=== PATIENT | male | born 1960 | race African-American/Black ===

== ENCOUNTER 2016-10-12 09:12 | Inpatient (IN) | payer OTHER ==
[2016-10-12 09:56] VITALS: BMI 30.4
--- NOTE | 2016-10-12 12:06 | HP ---
CIWA Score - CIWA Score Nausea/Vomitin-No Nausea/No Vomiting Muscle Tremors: 3 Anxiety: 4-Mod. Anxious/Guarded Agitation: 4-Moderately Restless Paroxysmal Sweats: 1-Minimal Palms Moist Orientation: 2-Disoriented Date<2 days Tacttile Disturbances: 1-Very Mild Itch/Numbness Auditory Disturbances: 0-None Visual Disturbances: 0-None Headache: 0-None Present CIWA-Ar Total Score: 15 Admission ROS BHS - HPI Chief Complaint: Withdrawal sx. Allergies/Adverse Reactions: Allergies Allergy/AdvReac Type Severity Reaction Status Date / Time No Known Drug Allergies Allergy Unknown Verified 10/12/16 10:18 History of Present Illness: 56 y/o man with a long hx. of alcoholism is admitted for detox.Pt. has been in previous detox,denies significant sobriety. Exam Limitations: No Limitations - Ebola screening Have you traveled outside of the country in the last 21 days: No Have you had contact with anyone from an Ebola affected area: No Have you been sick,other than usual withdrawal symptoms: No Do you have a fever: No - Review of Systems Constitutional: Diaphoresis EENT: reports: No Symptoms Reported Respiratory: reports: Shortness of Breath (from smoking) Cardiac: reports: No Symptoms Reported GI: reports: Nausea, Abdominal cramping : reports: No Symptoms Reported Musculoskeletal: reports: No Symptoms Reported Integumentary: reports: Sweating Neuro: reports: Tingling, Tremors Endocrine: reports: No Symptoms Reported Hematology: reports: No Symptoms Reported Psychiatric: reports: No Sypmtoms Reported Other Systems: Reviewed and Negative Patient History - Patient Medical History Hx Anemia: No Hx Asthma: No Hx Chronic Obstructive Pulmonary Disease (COPD): No Hx Cancer: No Hx Cardiac Disorders: No Hx Congestive Heart Failure: No Hx Hypertension: No Hx Hypercholesterolemia: No Hx Pacemaker: No HX Cerebrovascular Accident: No Hx Seizures: No Hx Dementia: No Hx Diabetes: No Hx Gastrointestinal Disorders: No Hx Liver Disease: No Hx Genitourinary Disorders: No Hx Sexually Transmitted Disorders: No Hx Renal Disease (ESRD): No Hx Thyroid Disease: No Hx Human Immunodeficiency Virus (HIV): No Hx Hepatitis C: No Hx Depression: No Hx Suicide Attempt: No Hx Bipolar Disorder: No Hx Schizophrenia: No - Patient Surgical History Past Surgical History: No Hx Neurologic Surgery: No Hx Cataract Extraction: No Hx Cardiac Surgery: No Hx Lung Surgery: No Hx Breast Surgery: No Hx Breast Biopsy: No Hx Abdominal Surgery: No Hx Appendectomy: No Hx Cholecystectomy: No Hx Genitourinary Surgery: No Hx Section: No Hx Orthopedic Surgery: No Anesthesia Reaction: No - PPD History Previous Implant?: Yes Documented Results: Positive w/o proof Results: cxray (-) 04/28 PPD to be Administered?: No - Smoking Cessation Smoking history: Current every day smoker Aproximately how many cigarettes per day: 20 Hx Chewing Tobacco Use: No Initiated information on smoking cessation: Yes 'Breaking Loose' booklet given: 10/12/16 - Substance & Tx. History Hx Alcohol Use: Yes Hx Substance Use: Yes Substance Use Type: Alcohol, Cocaine Hx Substance Use Treatment: Yes (detox) - Substances Abused Cocaine Route: Inhalation Frequency: Daily Amount used: $50 Age of first use: 32 Date of Last Use: 10/11/16 Alcohol-beer Route: Oral Frequency: Daily Amount used: 3-6 pks. Age of first use: 23 Date of Last Use: 10/12/16 Family Disease History - Family Disease History Family History: Denies Admission Physical Exam [facility] - Vital Signs Vital Signs: Vital Signs - 24 hr 10/12/16 09:54 Temperature 97.3 F L Pulse Rate 79 Respiratory 18 Rate Blood Pressure 129/79 - Physical General Appearance: Yes: Tremorous, Sweating, Anxious HEENTM: Yes: Rhinorrhea Respiratory: Yes: Chest Non-Tender, Lungs Clear, Normal Breath Sounds Neck: Yes: Supple Breast: Yes: Breast Exam Deferred Cardiology: Yes: Regular Rhythm, Regular Rate, S1, S2 Abdominal: Yes: Normal Bowel Sounds, Non Tender, Soft Genitourinary: Yes: Within Normal Limits Back: Yes: Within Normal Limits Musculoskeletal: Yes: Within Normal Limits Extremities: Yes: Tremors Neurological: Yes: Fully Oriented, Alert Integumentary: Yes: Diaphoresis Lymphatic: Yes: Within Normal Limits - Diagnostic (1) Alcohol dependence with uncomplicated withdrawal Current Visit: Yes Status: Acute (2) Cocaine dependence, uncomplicated Current Visit: Yes Status: Acute Cleared for Admission [facility] - Detox or Rehab [facility] Level of Care: Medically Managed Detox Regimen/Protocol: Librium [facility] Breath Alcohol Content Breath Alcohol Content: 0 Urine Drug Screen - Results Drug Screen Negative: No Urine Drug Screen Results: INOCENCIO-Cocaine
[2016-10-12] MEDS ORDERED: chlordiazePOXIDE HCL 25 MG CAPSULE PO PRN (12:21)
[2016-10-12] MEDS ORDERED: MAGNESIUM CITRATE 300 ML BOTTLE PO PRN (12:21)
[2016-10-12] MEDS ORDERED: LOPERAMIDE HCL 2 MG CAPSULE PO PRN (12:21)
[2016-10-12] MEDS ORDERED: guaiFENesin/D-METHORPHAN HB 10 ML UNIT-DOSE CUPS PO PRN (12:21)
[2016-10-12] MEDS ORDERED: IBUPROFEN 400 MG TABLET (FP) PO PRN (12:21)
[2016-10-12] MEDS ORDERED: P-EPHED 60MG/TRIPROLIDI 2.5MG TABLET PO PRN (12:21)
[2016-10-12] MEDS ORDERED: MAG HYDROX/AL HYDROX/SIMETH 30 ML UNIT-DOSE CUP PO PRN (12:21)
[2016-10-12] MEDS ORDERED: MAGNESIUM HYDROX 2400MG/30ML ORAL SUSPENSION 30 ML CUP PO PRN (12:21)
[2016-10-12] MEDS ORDERED: MENTHOL/PHENOL 1 EACH UD MM PRN (12:21)
[2016-10-12] MEDS ORDERED: ACETAMINOPHEN 325 MG TABLET (FP) PO PRN (12:21)
[2016-10-12] MEDS ORDERED: NICOTINE POLACRILEX 4 MG GUM BUC PRN (12:21)
[2016-10-12] MEDS ORDERED: chlordiazePOXIDE HCL 25 MG CAPSULE PO ONE (12:35)
[2016-10-12] MEDS: NICOTINE 21 MG/24 HOURS TOPICAL PATCH TD SCH (13:01)
--- NOTE | 2016-10-12 14:17 | EKG ---
Test Reason : Blood Pressure : / mmHG Vent. Rate : 094 BPM Atrial Rate : 094 BPM P-R Int : 122 ms QRS Dur : 082 ms QT Int : 380 ms P-R-T Axes : 053 034 083 degrees QTc Int : 475 ms NORMAL SINUS RHYTHM NONSPECIFIC T WAVE ABNORMALITY ABNORMAL ECG NO PREVIOUS ECGS AVAILABLE Confirmed by MERY HUTCHINS, MYLES ([id number]) on 10/12/2016 2:16:38 PM Referred By: Fabrice Carranza Confirmed By:MYLES ORDONEZ MD
[2016-10-12 16:41] LABS: URINE APPEARANCE CLEAR; URINE BILIRUBIN NEGATIVE (NEGATIVE); URINE BLOOD NEGATIVE (NEGATIVE); URINE COLOR LTYELLOW; URINE GLUCOSE (UA) NEGATIVE (NEGATIVE); URINE KETONE NEGATIVE (NEGATIVE); URINE LEUK ESTERASE NEGATIVE (NEGATIVE); URINE NITRITE NEGATIVE (NEGATIVE); URINE PROTEIN NEGATIVE (NEGATIVE); URINE UROBILINOGEN NEGATIVE E.U./dl (0.2-1.0)
[2016-10-12] MEDS: chlordiazePOXIDE HCL 25 MG CAPSULE PO SCH ×2 (17:22→22:08)
[2016-10-12] MEDS: THIAMINE HCL 100 MG TABLET (FP) PO SCH (22:08)
[2016-10-13] MEDS: chlordiazePOXIDE HCL 25 MG CAPSULE PO SCH ×4 (05:40→22:33)
[2016-10-13 10:05] LABS: MCH 29.2 pg (25.7-33.7); MEAN CELL VOLUME 88.4 fl (80-96); MEAN PLT VOLUME 9.9 fl (7.5-11.1); PLATELET COUNT 231 K/MM3 (134-434); RDW 14.8 % (11.9-15.9); WHITE BLOOD COUNT 3.5 K/mm3 (4.0-10.0)
[2016-10-13] MEDS: NICOTINE 21 MG/24 HOURS TOPICAL PATCH TD SCH (10:27)
[2016-10-13] MEDS: PRENATAL VITAMINS W/ FOLIC ACID TABLET (FP) PO SCH (10:27)
[2016-10-13 10:42] LABS: ALBUMIN 4.1 g/dl (3.4-5.0); BILIRUBIN,TOTAL 0.3 mg/dL (0.2-1.0); CALCIUM 9.3 mg/dL (8.5-10.1); CREATININE 1.7 mg/dL (0.7-1.3); TOT PROT 7.2 g/dl (6.4-8.2)
--- NOTE | 2016-10-13 11:18 | PN ---
[facility] CIWA - CIWA Score Nausea/Vomitin-No Nausea/No Vomiting Muscle Tremors: 4-Moderate,w/Arms Extend Anxiety: 4-Mod. Anxious/Guarded Agitation: 4-Moderately Restless Paroxysmal Sweats: 1-Minimal Palms Moist Orientation: 0-Oriented Tacttile Disturbances: 3-Moderate Itch/Numb/Burn Auditory Disturbances: 0-None Visual Disturbances: 0-None Headache: 0-None Present CIWA-Ar Total Score: 16 S Progress Note (SOAP) Subjective: ANXIETY,TREMORS,SWEATS,FATIGUE,INTERMITTENT SLEEP. Objective: 10/13/16 11:18 Vital Signs Temperature 97.7 F 10/13/16 09:42 Pulse Rate 68 10/13/16 09:42 Respiratory Rate 18 10/13/16 09:42 Blood Pressure 121/84 10/13/16 09:42 O2 Sat by Pulse Oximetry (%) Laboratory Last Values WBC 3.5 K/mm3 (4.0-10.0) L 10/13/16 06:00 RBC 4.43 M/mm3 (4.00-5.60) 10/13/16 06:00 Hgb 12.9 GM/dL (11.7-16.9) 10/13/16 06:00 Hct 39.2 % (35.4-49) 10/13/16 06:00 MCV 88.4 fl (80-96) 10/13/16 06:00 MCHC 33.0 g/dl (32.0-35.9) 10/13/16 06:00 RDW 14.8 % (11.9-15.9) 10/13/16 06:00 Plt Count 231 K/MM3 (134-434) 10/13/16 06:00 MPV 9.9 fl (7.5-11.1) 10/13/16 06:00 Sodium 142 mmol/L (136-145) 10/13/16 06:00 Potassium 4.6 mmol/L (3.5-5.1) 10/13/16 06:00 Chloride 105 mmol/L (98-107) 10/13/16 06:00 Carbon Dioxide 30 mmol/L (21-32) 10/13/16 06:00 Anion Gap 7 (8-16) L 10/13/16 06:00 BUN 25 mg/dL (7-18) H D 10/13/16 06:00 Creatinine 1.7 mg/dL (0.7-1.3) H 10/13/16 06:00 Creat Clearance w eGFR 42.21 (>60) 10/13/16 06:00 Random Glucose 141 mg/dL (74-106) H 10/13/16 06:00 Calcium 9.3 mg/dL (8.5-10.1) 10/13/16 06:00 Total Bilirubin 0.3 mg/dL (0.2-1.0) D 10/13/16 06:00 AST 34 U/L (15-37) 10/13/16 06:00 ALT 19 U/L (12-78) 10/13/16 06:00 Alkaline Phosphatase 60 U/L (45-117) 10/13/16 06:00 Total Protein 7.2 g/dl (6.4-8.2) 10/13/16 06:00 Albumin 4.1 g/dl (3.4-5.0) 10/13/16 06:00 Urine Color Ltyellow 10/12/16 13:20 Urine Appearance Clear 10/12/16 13:20 Urine pH 5.0 (5.0-8.0) 10/12/16 13:20 Ur Specific [place] 1.024 (1.001-1.035) 10/12/16 13:20 Urine Protein Negative (NEGATIVE) 10/12/16 13:20 Urine Glucose (UA) Negative (NEGATIVE) 10/12/16 13:20 Urine Ketones Negative (NEGATIVE) 10/12/16 13:20 Urine Blood Negative (NEGATIVE) 10/12/16 13:20 Urine Nitrite Negative (NEGATIVE) 10/12/16 13:20 Urine Bilirubin Negative (NEGATIVE) 10/12/16 13:20 Urine Urobilinogen Negative E.U./dl (0.2-1.0) 10/12/16 13:20 Ur Leukocyte Esterase Negative (NEGATIVE) 10/12/16 13:20 Hepatitis C Antibody <0.1 s/co ratio (0.0-0.9) 10/12/16 11:00 Assessment: 10/13/16 11:18 WITHDRAWAL SX Plan: CONTINUE DETOX
[2016-10-13] MEDS: THIAMINE HCL 100 MG TABLET (FP) PO SCH (22:33)
[2016-10-13] MEDS: diphenhydrAMINE HCL 50 MG CAPSULE PO PRN (22:33)
[2016-10-14] MEDS: chlordiazePOXIDE HCL 25 MG CAPSULE PO SCH ×2 (05:37→10:51)
[2016-10-14] MEDS: PRENATAL VITAMINS W/ FOLIC ACID TABLET (FP) PO SCH (10:51)
[2016-10-14] MEDS: NICOTINE 21 MG/24 HOURS TOPICAL PATCH TD SCH (10:51)
--- NOTE | 2016-10-14 11:01 | PN ---
S CIWA - CIWA Score Nausea/Vomitin-No Nausea/No Vomiting Muscle Tremors: 4-Moderate,w/Arms Extend Anxiety: 3 Agitation: 3 Paroxysmal Sweats: 3 Orientation: 0-Oriented Tacttile Disturbances: 0-None Auditory Disturbances: 0-None Visual Disturbances: 0-None Headache: 0-None Present CIWA-Ar Total Score: 13 BHS Progress Note (SOAP) Subjective: Anxiety,tremors,sweating,interrupted sleep,restless Objective: 10/14/16 11:00 Vital Signs - 8 hr 10/14/16 10/14/16 10/14/16 03:30 06:48 10:53 Temperature 95.9 F L 97.0 F L Pulse Rate 80 83 Respiratory 18 18 18 Rate Blood Pressure 127/72 110/65 Laboratory Tests 10/12/16 10/12/16 10/13/16 11:00 13:20 06:00 WBC 3.5 L RBC 4.43 Hgb 12.9 Hct 39.2 MCV 88.4 MCHC 33.0 RDW 14.8 Plt Count 231 MPV 9.9 Sodium Potassium Chloride Carbon Dioxide Anion Gap BUN Creatinine Creat Clearance w eGFR Random Glucose Calcium Total Bilirubin AST ALT Alkaline Phosphatase Total Protein Albumin Urine Color Ltyellow Urine Appearance Clear Urine pH 5.0 Ur Specific [place] 1.024 Urine Protein Negative Urine Glucose (UA) Negative Urine Ketones Negative Urine Blood Negative Urine Nitrite Negative Urine Bilirubin Negative Urine Urobilinogen Negative Ur Leukocyte Esterase Negative RPR Titer Hepatitis C Antibody <0.1 10/13/16 10/13/16 06:00 06:00 WBC RBC Hgb Hct MCV MCHC RDW Plt Count MPV Sodium 142 Potassium 4.6 Chloride 105 Carbon Dioxide 30 Anion Gap 7 L BUN 25 H D Creatinine 1.7 H Creat Clearance w eGFR 42.21 Random Glucose 141 H Calcium 9.3 Total Bilirubin 0.3 D AST 34 ALT 19 Alkaline Phosphatase 60 Total Protein 7.2 Albumin 4.1 Urine Color Urine Appearance Urine pH Ur Specific [place] Urine Protein Urine Glucose (UA) Urine Ketones Urine Blood Urine Nitrite Urine Bilirubin Urine Urobilinogen Ur Leukocyte Esterase RPR Titer Nonreactive Hepatitis C Antibody labs noted,repeat BMP Assessment: 10/14/16 11:01 withdrawal sx. Plan: Continue detox
[2016-10-14] MEDS: chlordiazePOXIDE 5 MG CAPSULE PO SCH ×2 (17:27→22:58)
[2016-10-14] MEDS: diphenhydrAMINE HCL 50 MG CAPSULE PO PRN (22:58)
[2016-10-14] MEDS: THIAMINE HCL 100 MG TABLET (FP) PO SCH (22:58)
[2016-10-15] MEDS: chlordiazePOXIDE 5 MG CAPSULE PO SCH ×2 (05:14→10:36)
[2016-10-15] MEDS: PRENATAL VITAMINS W/ FOLIC ACID TABLET (FP) PO SCH (10:36)
[2016-10-15] MEDS: NICOTINE 21 MG/24 HOURS TOPICAL PATCH TD SCH (10:36)
[2016-10-15 10:42] LABS: CALCIUM 8.4 mg/dL (8.5-10.1); CREATININE 1.2 mg/dL (0.7-1.3)
--- NOTE | 2016-10-15 16:47 | PN ---
S Progress Note (SOAP) Subjective: Anxious, nausea, sweating, interrupted sleep Objective: 10/15/16 16:46 Last Vital Signs Temp Pulse Resp BP Pulse Ox 96 F L 99 H 20 119/73 10/15/16 14:21 10/15/16 14:21 10/15/16 14:21 10/15/16 14:21 Laboratory Tests 10/12/16 10/12/16 10/13/16 11:00 13:20 06:00 WBC 3.5 L RBC 4.43 Hgb 12.9 Hct 39.2 MCV 88.4 MCHC 33.0 RDW 14.8 Plt Count 231 MPV 9.9 Sodium Potassium Chloride Carbon Dioxide Anion Gap BUN Creatinine Creat Clearance w eGFR Random Glucose Calcium Total Bilirubin AST ALT Alkaline Phosphatase Total Protein Albumin Urine Color Ltyellow Urine Appearance Clear Urine pH 5.0 Ur Specific [place] 1.024 Urine Protein Negative Urine Glucose (UA) Negative Urine Ketones Negative Urine Blood Negative Urine Nitrite Negative Urine Bilirubin Negative Urine Urobilinogen Negative Ur Leukocyte Esterase Negative RPR Titer Hepatitis C Antibody <0.1 10/13/16 10/13/16 10/15/16 06:00 06:00 08:00 WBC RBC Hgb Hct MCV MCHC RDW Plt Count MPV Sodium 142 140 Potassium 4.6 3.9 Chloride 105 105 Carbon Dioxide 30 28 Anion Gap 7 L 7 L BUN 25 H D 15 D Creatinine 1.7 H 1.2 D Creat Clearance w eGFR 42.21 Random Glucose 141 H 103 D Calcium 9.3 8.4 L Total Bilirubin 0.3 D AST 34 ALT 19 Alkaline Phosphatase 60 Total Protein 7.2 Albumin 4.1 Urine Color Urine Appearance Urine pH Ur Specific [place] Urine Protein Urine Glucose (UA) Urine Ketones Urine Blood Urine Nitrite Urine Bilirubin Urine Urobilinogen Ur Leukocyte Esterase RPR Titer Nonreactive Hepatitis C Antibody Labs noted Assessment: 10/15/16 16:47 Withdrawal symptoms Plan: Continue detox
[2016-10-15] MEDS: chlordiazePOXIDE HCL 10 MG CAPSULE PO SCH ×2 (17:34→22:39)
[2016-10-15] MEDS: diphenhydrAMINE HCL 50 MG CAPSULE PO PRN (22:39)
[2016-10-15] MEDS: THIAMINE HCL 100 MG TABLET (FP) PO SCH (22:39)
[2016-10-16] MEDS: chlordiazePOXIDE HCL 10 MG CAPSULE PO SCH ×2 (05:40→11:48)
[2016-10-16 09:42] VITALS: BP 130/83; PULSE 103; TEMP 96
--- NOTE | 2016-10-16 11:01 | DS ---
[facility] Detox Discharge Summary Admission Date: 10/12/16 Discharge Date: 10/16/16 - History Present History: Alcohol Dependence, Cocaine Dependence Pertinent Past History: denies - Physical Exam Results Vital Signs: Vital Signs Temperature 96.0 F L 10/16/16 09:41 Pulse Rate 103 H 10/16/16 09:41 Respiratory Rate 20 10/16/16 09:41 Blood Pressure 130/83 10/16/16 09:41 O2 Sat by Pulse Oximetry (%) Pertinent Admission Physical Exam Findings: Withdrawal sx. Laboratory Last Values WBC 3.5 K/mm3 (4.0-10.0) L 10/13/16 06:00 RBC 4.43 M/mm3 (4.00-5.60) 10/13/16 06:00 Hgb 12.9 GM/dL (11.7-16.9) 10/13/16 06:00 Hct 39.2 % (35.4-49) 10/13/16 06:00 MCV 88.4 fl (80-96) 10/13/16 06:00 MCHC 33.0 g/dl (32.0-35.9) 10/13/16 06:00 RDW 14.8 % (11.9-15.9) 10/13/16 06:00 Plt Count 231 K/MM3 (134-434) 10/13/16 06:00 MPV 9.9 fl (7.5-11.1) 10/13/16 06:00 Sodium 140 mmol/L (136-145) 10/15/16 08:00 Potassium 3.9 mmol/L (3.5-5.1) 10/15/16 08:00 Chloride 105 mmol/L (98-107) 10/15/16 08:00 Carbon Dioxide 28 mmol/L (21-32) 10/15/16 08:00 Anion Gap 7 (8-16) L 10/15/16 08:00 BUN 15 mg/dL (7-18) D 10/15/16 08:00 Creatinine 1.2 mg/dL (0.7-1.3) D 10/15/16 08:00 Creat Clearance w eGFR 42.21 (>60) 10/13/16 06:00 Random Glucose 103 mg/dL (74-106) D 10/15/16 08:00 Calcium 8.4 mg/dL (8.5-10.1) L 10/15/16 08:00 Total Bilirubin 0.3 mg/dL (0.2-1.0) D 10/13/16 06:00 AST 34 U/L (15-37) 10/13/16 06:00 ALT 19 U/L (12-78) 10/13/16 06:00 Alkaline Phosphatase 60 U/L (45-117) 10/13/16 06:00 Total Protein 7.2 g/dl (6.4-8.2) 10/13/16 06:00 Albumin 4.1 g/dl (3.4-5.0) 10/13/16 06:00 Urine Color Ltyellow 10/12/16 13:20 Urine Appearance Clear 10/12/16 13:20 Urine pH 5.0 (5.0-8.0) 10/12/16 13:20 Ur Specific [place] 1.024 (1.001-1.035) 10/12/16 13:20 Urine Protein Negative (NEGATIVE) 10/12/16 13:20 Urine Glucose (UA) Negative (NEGATIVE) 10/12/16 13:20 Urine Ketones Negative (NEGATIVE) 10/12/16 13:20 Urine Blood Negative (NEGATIVE) 10/12/16 13:20 Urine Nitrite Negative (NEGATIVE) 10/12/16 13:20 Urine Bilirubin Negative (NEGATIVE) 10/12/16 13:20 Urine Urobilinogen Negative E.U./dl (0.2-1.0) 10/12/16 13:20 Ur Leukocyte Esterase Negative (NEGATIVE) 10/12/16 13:20 RPR Titer Nonreactive (NONREACTIVE) 10/13/16 06:00 Hepatitis C Antibody <0.1 s/co ratio (0.0-0.9) 10/12/16 11:00 labs noted - Treatment Hospital Course: Detox Protocol Followed, Detoxed Safely, Responded well, Discharged Condition Good, Rehab Referral Accepted Patient has Accepted a Rehab Referral to: [facility] - Medication Discharge Medications: Ambulatory Orders NK [No Known Home Medication] 05/08/16 - Diagnosis (1) Alcohol dependence with uncomplicated withdrawal Current Visit: Yes Status: Acute (2) Cocaine dependence, uncomplicated Current Visit: Yes Status: Acute - AMA Did Patient Leave Against Medical Advice: No
[2016-10-16] MEDS: PRENATAL VITAMINS W/ FOLIC ACID TABLET (FP) PO SCH (11:48)
[2016-10-16] MEDS: NICOTINE 21 MG/24 HOURS TOPICAL PATCH TD SCH (11:48)
== END 2016-10-16 12:17 | disposition home or self-care (01) | DRG 774 ==
LOC: YASAS 09:12 → Y3N 11:08
PROVIDERS: ADMIT Internal Medicine; ATTEND Internal Medicine
PROC: HZ2ZZZZ Detoxification Services for Substance Abuse Treatment (ICD-10-PCS; principal; 2016-10-12)
DX: F10.230 Alcohol dependence with withdrawal, uncomplicated (principal); F14.20 Cocaine dependence, uncomplicated; F17.210 Nicotine dependence, cigarettes, uncomplicated
CPT/HCPCS: 36415; 80048; 80053; 81003; 85027; 86593; 93005; 93010